=== PATIENT | male | born 1965 | race Two or more races ===

== ENCOUNTER 2024-06-09 17:32 | Emergency (ER) | payer BC ==
[~2024-06-09] VITALS: Ht 175.3 cm; Wt 129.3 kg
[2024-06-09] MEDS ORDERED: IV NS 0.9% 250 ML IV ONE (17:50)
[2024-06-09] MEDS ORDERED: IOHEXOL-350 100 ML VIAL IV ONE (17:50)
[2024-06-09 17:53] LABS: BASOPHILS # (AUTO) 0.1 K/uL (0.0-0.2); BASOPHILS % (AUTO) 1.1 % (0.0-2.0); EOSINOPHILS # (AUTO) 0.2 K/uL (0.0-0.7); EOSINOPHILS % (AUTO) 2.3 % (0.0-6.0); HEMATOCRIT 45 % (39-51); HEMOGLOBIN 15.1 g/dL (13.5-17.5); LYMPHOCYTES # (AUTO) 1.2 K/uL (0.8-4.8); LYMPHOCYTES % (AUTO) 10.5 % (20.0-44.0); MEAN CORPUSCULAR HEMOGLOBIN 31 PG (26.0-33.0); MEAN CORPUSCULAR HGB CONC 34 g/dl (31.0-36.0); MEAN CORPUSCULAR VOLUME 91 fL (80-96); MONOCYTES % (AUTO) 8.7 % (2.0-12.0); NEUTROPHILS # (AUTO) 8.5 K/uL (1.8-8.9); NEUTROPHILS % (AUTO) 77.4 % (43.0-81.0); PLATELET COUNT (AUTO) 332 K/uL (150-450); RED BLOOD CELL COUNT(AUTO) 4.95 MIL/uL (4.5-6.0); RED CELL DISTRIBUTION WIDTH 13.9 % (11.5-15.0)
[2024-06-09 18:01] LABS: CALCIUM, SERUM 9.6 mg/dL (8.5-10.1); CARBON DIOXIDE 38 mmol/L (21-32); CHLORIDE 100 mmol/L (98-107); CREATININE 1.2 mg/dL (0.6-1.3); GLUCOSE 96 mg/dL (74-106); POTASSIUM 3.4 mmol/L (3.5-5.1); SODIUM SERUM 140 mmol/L (136-145); UREA NITROGEN, BLOOD 17 mg/dL (7-18)
[2024-06-09 18:04] LABS: INR 0.98 (0.91-1.10); PARTIAL THROMBOPLASTIN TIME 26.5 SEC (24.3-34.3); PROTHROMBIN TIME 10.1 SECS (9.2-11.1)
[2024-06-09] MEDS ORDERED: ACYC-108 PO (18:54)
[2024-06-09] MEDS ORDERED: PRED50TA PO (18:54)
[2024-06-09 19:07] VITALS: BP 137/64; TEMP 98.6; O2SAT 99
== END 2024-06-09 19:00 | disposition home or self-care (01) ==
LOC: ER 17:40
DX: G51.0 Bell's palsy (principal); I10 Essential (primary) hypertension; E11.9 Type 2 diabetes mellitus without complications
CPT/HCPCS: 99291; 70498; 93005; 70496; 85025; 80048; 36415; 84484; 85730; 82962; 70450; J7050; Q9967